=== PATIENT | female | born 1945 | race Caucasian/White ===

== ENCOUNTER 2022-05-27 19:14 | Emergency (ER) | payer MEDICARE, OTHER ==
[~2022-05-27] VITALS: Ht 165.1 cm; Wt 76.2 kg
[~2022-05-27 19:14] MED LIST: ALBU90OI INH; ALBU90OI6 INH; ALPR.25 PO; ASPI81CH PO; ATOR40TA PO; CARV25 PO; CEPH500 PO; LEVO750 PO; LISI5 PO; METO100ER PO; Nitrostat0.4 MG SL; Norco 5-325 Ta1 EACH PO; TRIHYD253A PO; WARF2.5 PO; WARF5 PO
== END 2022-05-27 20:30 | disposition home or self-care (01) ==
LOC: ER 19:14
DX: S61.412A Laceration without foreign body of left hand, initial encounter (principal); W54.1XXA Struck by dog, initial encounter; I10 Essential (primary) hypertension; Z87.891 Personal history of nicotine dependence
CPT/HCPCS: 12002; 99282-25

== ENCOUNTER 2022-12-13 09:04 | Day surgery (SDC) | payer MEDICARE, OTHER ==
[2022-12-13] VITALS (9 sets, daily range): BP systolic 121–176; BP diastolic 60–96
[~2022-12-13] VITALS: Ht 165.1 cm; Wt 85.0 kg
[~2022-12-13 09:04] MED LIST changes: +LEVSOD100 PO
[2022-12-13] MEDS ORDERED: BUSP5 PO (09:34)
[2022-12-13] MEDS ORDERED: IBUP600 PO (09:34)
--- NOTE | 2022-12-13 12:15 | NUR ---
ASSUMED CARE OF PT POST PROCEDURE. PT AWAKE AND CONVERSING APPROPRIATELY; DENIES PAIN POST PROCEDURE. MONITOR PACED 70'S, B/P 144/84, SO2 99% RA, AFEBRILE. L CHEST GEN CHANGE SITE: NO SWELLING/HEMATOMA, MEDIPORE DRST INTACT.
[2022-12-13] MEDS ORDERED: Keflex500 MG PO (13:28)
--- NOTE | 2022-12-13 13:45 | NUR ---
PT AMB TO BATHROOM, GAIT STEADY, VOIDED QS; SITE UNCHANGED WITH ACTIVITY.
--- NOTE | 2022-12-13 14:00 | NUR ---
PT DRESSED SELF WITHOUT PROBLEM, SITE UNCHANGED; IV REMOVED-CANNULA INTACT.
--- NOTE | 2022-12-13 14:14 | NUR ---
PT AND FAMILY RECEIVED DISCHARGE INSTRUCTIONS, MED LIST AND AFTER CARE INSTRUCTIONS; VERBALIZED GOOD UNDERSTANDING. PT LEFT FACILITY VIA W/C, CONDITION STABLE.
== END 2022-12-13 15:11 | disposition home or self-care (01) ==
LOC: MHTC 09:04
DX: Z45.010 Encounter for checking and testing of cardiac pacemaker pulse generator [battery] (principal); I25.810 Atherosclerosis of coronary artery bypass graft(s) without angina pectoris; I42.9 Cardiomyopathy, unspecified; I44.2 Atrioventricular block, complete; E78.5 Hyperlipidemia, unspecified; E03.9 Hypothyroidism, unspecified; I11.0 Hypertensive heart disease with heart failure; I50.20 Unspecified systolic (congestive) heart failure; Z95.2 Presence of prosthetic heart valve; Z95.1 Presence of aortocoronary bypass graft; I25.2 Old myocardial infarction
CPT/HCPCS: 33229; 99152; 99153; C1781; C2621; J0690; J1644; J2250; J3010; J7040

== ENCOUNTER 2024-02-24 11:47 | Emergency (ER) | payer MEDICARE, OTHER ==
[~2024-02-24] VITALS: Ht 165.1 cm; Wt 83.5 kg
[~2024-02-24 11:47] MED LIST changes: +BUSP5 PO; +IBUP600 PO; +Keflex500 MG PO
[2024-02-24 12:21] VITALS: BP 169/107
[2024-02-24] MEDS ORDERED: ALPRAZOLAM0.5 M1 PO (12:25)
[2024-02-24] MEDS ORDERED: CATAPRES0.1 MG PO (12:25)
[2024-02-24 12:58] LABS: Hematocrit 45.3 % (33.0-51.0); Mean Corpuscular HGB 30.1 pg (26.0-34.0); Mean Corpuscular HGB Conc 33.1 g/dL (31.5-36.5); Mean Corpuscular Volume 91 fL (80-100); Mean Platelet Volume 11.1 fL (9.1-12.4); Platelet Count 192 K/mm3 (150-400); RDW Coefficient Variation 13.5 % (11.7-14.2); RDW Standard Deviation 45.3 fL (35.1-46.3); Red Blood Cell Count 4.99 M/mm3 (3.80-5.20); White Blood Cell Count 4.76 K/mm3 (4.00-11.30)
[2024-02-24 13:15] LABS: Albumin, Blood 3.7 g/dL (3.4-5.0); Albumin/Globulin Ratio 0.9 (0.8-1.8); Bilirubin, Total 0.5 mg/dL (0.1-1.0); Bun/Creatinine Ratio 15.8 (12.0-20.0); Calcium, Blood 9.7 mg/dL (8.5-10.1); Creatinine, Blood 0.89 mg/dL (0.40-1.00); Globulin, Blood 3.9 g/dL (2.2-4.0); Potassium, Blood 4.3 mmol/L (3.5-5.5); Total Protein, Blood 7.6 g/dL (6.4-8.2)
[2024-02-24 13:26] LABS: BAND PERCENT MAN 1 % (0-8); BASOPHILS ABSOLUTE MAN 0.04 K/mm3 (0.00-0.23); BASOPHILS PERCENT MAN 1 % (0-2); EOSINOPHILS ABSOLUTE MAN 0.04 K/mm3 (0.00-0.68); EOSINOPHILS PERCENT MAN 1 % (0-6); LYMPHOCYTES ABSOLUTE MAN 1.33 K/mm3 (0.84-5.20); LYMPHOCYTES PERCENT MAN 28 % (21-46); MONOCYTES PERCENT MAN 17 % (4-13); NEUTROPHILS ABSOLUTE MAN 2.52 K/mm3 (1.96-9.15); SEG NEUTROPHILS PERCENT MAN 52 % (41-73); TOTAL CELLS COUNTED 100
[2024-02-24 16:47] LABS: Source, Urine Clean Catch
[2024-02-24] MEDS ORDERED: LORazepam 1 MG Tab PO ONE (16:55)
[2024-02-24 17:15] LABS: Appearance, Urine Turbid (Clear); Bilirubin, Urine Neg (Neg); Blood, Urine Neg (Neg); Color, Urine Yellow (P-Yellow); Glucose Qualitative, Urine Neg (Neg); Ketones, Urine Neg (Neg); Leukocyte Esterase, Urine 2+ (Neg); Nitrite, Urine Neg (Neg); Protein, Urine 1+ (Neg); Urobilinogen, Urine NORM (Normal)
[2024-02-24 17:35] LABS: Bacteria Mod /hpf; Calcium Oxalate Crystals Mod /hpf; Red Blood Cells, Urine Not Seen /hpf (0-2)
[2024-02-24 17:36] LABS: Amorphous Heavy (0-Heavy); Squamous Epithelial Cells Few /hpf (Few)
[2024-02-24] MEDS ORDERED: HYDHCL25 PO (17:38)
== END 2024-02-24 17:59 | disposition home or self-care (01) ==
LOC: ER 11:47
PROVIDERS: Physician Assistant
DX: I10 Essential (primary) hypertension (principal); F41.9 Anxiety disorder, unspecified; I25.2 Old myocardial infarction; Z87.891 Personal history of nicotine dependence; Z79.82 Long term (current) use of aspirin; Z79.899 Other long term (current) drug therapy
CPT/HCPCS: 80053; 81001; 84484; 85025; 87086; 93005; 93010; 99284-25; A9270

== ENCOUNTER 2024-06-09 02:13 | Emergency (ER) | payer MEDICARE, OTHER ==
[~2024-06-09] VITALS: Ht 165.1 cm; Wt 84.8 kg
[~2024-06-09 02:13] MED LIST changes: +ALPRAZOLAM0.5 M1 PO; +CATAPRES0.1 MG PO; +HYDHCL25 PO
[2024-06-09] MEDS ORDERED: Acetaminophen 500 MG Tab PO ONE (02:30)
[2024-06-09] MEDS ORDERED: Lidocaine 4% 1 Patch TOP ONE (02:30)
[2024-06-09 02:50] LABS: BASOPHILS ABSOLUTE AUTO 0.03 K/mm3 (0.00-0.23); BASOPHILS PERCENT AUTO 1 % (0-2); EOSINOPHILS ABSOLUTE AUTO 0.03 K/mm3 (0.00-0.68); EOSINOPHILS PERCENT AUTO 1 % (0-6); Hematocrit 42.2 % (33.0-51.0); Hemoglobin 13.7 g/dL (11.5-16.0); IMMATURE GRAN ABSOLUTE AUTO 0.01 K/mm3 (0.00-0.10); IMMATURE GRAN PERCENT AUTO 0 % (0-1); LYMPHOCYTES PERCENT AUTO 34 % (21-46); MONOCYTES ABSOLUTE AUTO 1.19 K/mm3 (0.16-1.47); MONOCYTES PERCENT AUTO 25 % (4-13); Mean Corpuscular HGB 29.6 pg (26.0-34.0); Mean Corpuscular HGB Conc 32.5 g/dL (31.5-36.5); Mean Corpuscular Volume 91 fL (80-100); NEUTROPHILS ABSOLUTE AUTO 1.86 K/mm3 (1.96-9.15); NEUTROPHILS PERCENT AUTO 40 % (41-73); Platelet Count 157 K/mm3 (150-400); RDW Coefficient Variation 14.1 % (11.7-14.2); RDW Standard Deviation 47.7 fL (35.1-46.3); Red Blood Cell Count 4.63 M/mm3 (3.80-5.20); White Blood Cell Count 4.72 K/mm3 (4.00-11.30)
[2024-06-09 03:03] LABS: Albumin/Globulin Ratio 0.9 (0.8-1.8); Bilirubin, Total 0.2 mg/dL (0.1-1.0); Bun/Creatinine Ratio 16.9 (12.0-20.0); Calcium, Blood 8.4 mg/dL (8.5-10.1); Creatinine, Blood 0.83 mg/dL (0.40-1.00); Globulin, Blood 3.5 g/dL (2.2-4.0); Total Protein, Blood 6.5 g/dL (6.4-8.2)
[2024-06-09 05:45] VITALS: BP 152/71
[2024-06-09] MEDS ORDERED: ONDA4 PO (05:53)
[2024-06-09] MEDS ORDERED: TAMS.4ER PO (05:53)
[2024-06-09] MEDS ORDERED: ACET500 PO (05:53)
[2024-06-09] MEDS ORDERED: IBUP600 PO (05:53)
[2024-06-09 06:06] LABS: Source, Urine Clean Catch
[2024-06-09 06:11] LABS: Appearance, Urine Hazy (Clear); Bilirubin, Urine Neg (Neg); Blood, Urine Neg (Neg); Color, Urine Yellow (P-Yellow); Glucose Qualitative, Urine Neg (Neg); Ketones, Urine 1+ (Neg); Leukocyte Esterase, Urine 2+ (Neg); Nitrite, Urine Neg (Neg); Protein, Urine 1+ (Neg); Specific Gravity, Urine 1.025 (1.003-1.022); Urobilinogen, Urine NORM (Normal)
[2024-06-09 06:17] LABS: Bacteria Many /hpf; Mucus Mod (0-Heavy); Red Blood Cells, Urine 0-2 /hpf (0-2); Squamous Epithelial Cells Many /hpf (Few)
[2024-06-09] MEDS ORDERED: CEPH500 PO (06:23)
== END 2024-06-09 06:44 | disposition home or self-care (01) ==
LOC: ER 02:13
PROVIDERS: Emergency Medicine
DX: N20.0 Calculus of kidney (principal); N39.0 Urinary tract infection, site not specified; I10 Essential (primary) hypertension; I25.2 Old myocardial infarction; K57.30 Diverticulosis of large intestine without perforation or abscess without bleeding; Z79.82 Long term (current) use of aspirin; Z79.890 Hormone replacement therapy; Z79.899 Other long term (current) drug therapy; Z95.1 Presence of aortocoronary bypass graft; Z95.2 Presence of prosthetic heart valve; Z95.5 Presence of coronary angioplasty implant and graft; Z95.0 Presence of cardiac pacemaker; Z87.891 Personal history of nicotine dependence
CPT/HCPCS: 74176; 80053; 81001; 83690; 85025; 87086; 99285-25; A9270